=== PATIENT | female | born 1940 | race Caucasian/White ===

== ENCOUNTER 2022-08-31 18:18 | Observation (INO) ==
[2022-08-31] MEDS ORDERED: MORPHINE 2 MG/1 ML SYRINGE IV STA (19:34)
[2022-08-31] MEDS ORDERED: ONDANSETRON 4 MG/2 ML VIAL IV STA (19:34)
[2022-08-31 19:55] LABS: Basophils % 0.3 % (0.0-0.8); Eosinophils # 0.1 10*3/uL (0.0-0.87); Eosinophils % 0.8 % (0.00-10.9); Hematocrit 32.5 VOL% (35.7-47.0); Hemoglobin 10.2 GM/DL (12.0-16.0); Immature Granulocytes % 0.5 %; Immature Granulocytes Absolute 0.07 #; Lymphocytes # 3.8 10*3/uL (1.4-4.0); Mean Corpuscular HGB Conc 31.4 GM/DL (32-36); Mean Platelet Volume 11.8 FL (9.6-12.0); Monocytes # 1.4 10*3/uL (0.11-0.8); Monocytes % 9.3 % (1.7-12.7); Neutrophils % 64.1 % (38.7-73.9); Platelet Count 277 T/CUMM (130-400); Red Blood Count 3.61 MC/CUMM (3.8-5.5); Red Cell Distribution Width 15.3 % (9.3-17.3); White Blood Count 15.1 T/CUMM (4-12)
[2022-08-31 20:15] LABS: Albumin 2.8 G/DL (3.4-5.0); Bilirubin,Total 0.4 MG/DL (0.20-1.00); Calcium 8.4 MG/DL (8.5-10.1); Osmolality,Calculated 277.8 MOS/KG (273-304); Potassium 4.2 MMOL/L (3.5-5.1); Total Protein 6.5 G/DL (6.4-8.2)
[2022-08-31 20:23] LABS: Eosinophils 1 % (0-10); Lymphocytes 26 % (20-55); Total Cells Counted 100
[2022-08-31 20:24] LABS: Platelet Estimate Normal; Polychromasia Slight
[2022-08-31 20:26] LABS: Burr Cells Few
[2022-08-31 20:27] LABS: Acanthocytes Few
[2022-08-31 20:41] LABS: Glucose,Urine (UA) Negative (Negative); Ketones,Urine Negative (Negative); Nitrite,Urine Negative (Negative); Protein,Urine 100 mg/dL (Negative); Squamous Epithelial Cell,Urine Occasional /HPF (0-10); Urine Appearance Clear (Clear); Urine Color Yellow (Yellow); Urine pH 5.5 (4.5-8.0)
[2022-08-31 20:42] LABS: Bilirubin,Urine Negative (Negative); Blood, Urine Small mg/dL (Negative); Urine Urobilinogen 0.2 eU/dL (<2.0)
[2022-08-31] MEDS ORDERED: cefTRIAXone 1,000 MG in SODIUM CHLORIDE 0.9% 100 ML IV STA (21:06)
[2022-08-31] MEDS ORDERED: DEXTROSE 50% 25 GM/50 ML VIAL IV STA (21:46)
[2022-08-31] MEDS ORDERED: DEXTROSE 50% 25 GM/50 ML SYRINGE IV ONE (21:47)
[2022-08-31] MEDS ORDERED: DEXTROSE 50% 25 GM/50 ML SYRINGE IV STA (21:54)
[2022-08-31] MEDS: DEXTROSE 5% NACL 0.45% 1,000 ML IV SCH (21:56)
[2022-08-31] MEDS ORDERED: GLUCAGON 1 MG VIAL IM PRN (22:51)
[2022-08-31] MEDS ORDERED: DEXTROSE 10% 250 ML BAG IV PRN (22:51)
[2022-08-31] MEDS ORDERED: ACETAMINOPHEN 325 MG TABLET PO PRN (22:51)
[2022-08-31] MEDS ORDERED: MORPHINE 2 MG/1 ML SYRINGE IV PRN (22:51)
[2022-08-31] MEDS ORDERED: ONDANSETRON 4 MG/2 ML VIAL IV PRN (22:51)
[2022-09-01 05:42] LABS: Basophils % 0.2 % (0.0-0.8); Eosinophils # 0.4 10*3/uL (0.0-0.87); Eosinophils % 2.8 % (0.00-10.9); Hemoglobin 8.9 GM/DL (12.0-16.0); Immature Granulocytes % 0.5 %; Immature Granulocytes Absolute 0.07 #; Lymphocytes # 2.5 10*3/uL (1.4-4.0); Mean Corpuscular HGB Conc 30.7 GM/DL (32-36); Mean Platelet Volume 12.5 FL (9.6-12.0); Monocytes # 1.4 10*3/uL (0.11-0.8); Monocytes % 10.9 % (1.7-12.7); Neutrophils % 66.6 % (38.7-73.9); Platelet Count 249 T/CUMM (130-400); Red Blood Count 3.26 MC/CUMM (3.8-5.5); Red Cell Distribution Width 15.3 % (9.3-17.3); White Blood Count 13.1 T/CUMM (4-12)
[2022-09-01] MEDS ORDERED: LEVOTHYROXINE 88 MCG TABLET PO SCH (06:00)
[2022-09-01 06:13] LABS: Calcium 7.7 MG/DL (8.5-10.1); Osmolality,Calculated 278.2 MOS/KG (273-304); Potassium 4.4 MMOL/L (3.5-5.1); Thyroid Stimulating Hormone 0.009 uIU/ml (0.358-3.74)
[2022-09-01 08:23] LABS: Free T4 (Free Thyroxine) 1.08 NG/DL (0.76-1.46)
[2022-09-01] MEDS: SERTRALINE 100 MG TABLET PO SCH (08:26)
[2022-09-01] MEDS: LIOTHYRONINE 25 MCG TABLET PO SCH (08:27)
[2022-09-01] MEDS: PREGABALIN 75 MG CAPSULE PO SCH ×2 (08:27→20:43)
[2022-09-01] MEDS: ESTRADIOL 2 MG TABLET PO SCH (08:27)
[2022-09-01] MEDS: RALOXIFENE 60 MG TABLET PO SCH (08:27)
[2022-09-01] MEDS: PANTOPRAZOLE 40 MG TABLET PO SCH (08:27)
[2022-09-01] MEDS: DEXTROSE 5% NACL 0.45% 1,000 ML IV SCH (08:31)
[2022-09-01] MEDS: SODIUM CHLORIDE 0.9% 1,000 ML IV SCH ×2 (11:40→23:49)
[2022-09-01] MEDS ORDERED: ZINC OXIDE PASTE 113 GM TUBE TOP PRN (15:33)
[2022-09-01] MEDS: glipiZIDE 10 MG TABLET PO SCH (17:40)
[2022-09-01] MEDS ORDERED: cefTRIAXone 1,000 MG in SODIUM CHLORIDE 0.9% 100 ML IV SCH (21:00)
[2022-09-01] MEDS ORDERED: ENOXAPARIN 40 MG/0.4 ML SYRINGE SUBCUT SCH (21:00)
[2022-09-01] MEDS ORDERED: ROSUVASTATIN 10 MG TABLET PO SCH (21:00)
[2022-09-02 05:21] LABS: Basophils % 0.1 % (0.0-0.8); Eosinophils # 0.6 10*3/uL (0.0-0.87); Eosinophils % 4.5 % (0.00-10.9); Hematocrit 27.5 VOL% (35.7-47.0); Hemoglobin 8.3 GM/DL (12.0-16.0); Immature Granulocytes % 0.4 %; Immature Granulocytes Absolute 0.06 #; Lymphocytes # 5.1 10*3/uL (1.4-4.0); Lymphocytes % 37.2 % (21.3-54.2); Mean Corpuscular HGB Conc 30.2 GM/DL (32-36); Mean Corpuscular Volume 92.9 FL (87-102); Mean Platelet Volume 12.5 FL (9.6-12.0); Monocytes # 1.4 10*3/uL (0.11-0.8); Monocytes % 9.9 % (1.7-12.7); Neutrophils % 47.9 % (38.7-73.9); Platelet Count 267 T/CUMM (130-400); Red Blood Count 2.96 MC/CUMM (3.8-5.5); Red Cell Distribution Width 15.4 % (9.3-17.3); White Blood Count 13.8 T/CUMM (4-12)
[2022-09-02 05:40] LABS: Calcium 7.8 MG/DL (8.5-10.1); Osmolality,Calculated 272.2 MOS/KG (273-304); Potassium 4.5 MMOL/L (3.5-5.1)
[2022-09-02] MEDS ORDERED: LEVOTHYROXINE 50 MCG TABLET PO SCH (06:00)
[2022-09-02] MEDS: PREGABALIN 75 MG CAPSULE PO SCH (08:26)
[2022-09-02] MEDS: ESTRADIOL 2 MG TABLET PO SCH (08:27)
[2022-09-02] MEDS: LIOTHYRONINE 25 MCG TABLET PO SCH (08:27)
[2022-09-02] MEDS: RALOXIFENE 60 MG TABLET PO SCH (08:27)
[2022-09-02] MEDS: glipiZIDE 10 MG TABLET PO SCH (08:27)
[2022-09-02] MEDS: PANTOPRAZOLE 40 MG TABLET PO SCH (08:27)
[2022-09-02] MEDS: SERTRALINE 100 MG TABLET PO SCH (08:27)
[2022-09-02 11:51] VITALS: BP 106/47
== END 2022-09-02 12:08 | disposition home or self-care (01) ==
LOC: EDBD → EDUNIT# → N.ED 18:18 → N.EDINP 18:18 → N.5E 23:31
PROVIDERS: ADMIT Family Medicine; ATTEND Family Medicine